=== PATIENT | female | born 1955 | race Caucasian/White ===

== ENCOUNTER → 2020-04-28 | Outpatient (REF) | payer MEDICARE ==
[2020-04-28 13:49] LABS: CPK CREATINE PHOSPHOKINASE 119 U/L (26-192); MAGNESIUM LEVEL 2.3 MG/DL (1.8-2.4); PHOSPHORUS LEVEL 2.6 MG/DL (2.5-4.9); TOTAL 25(OH) VITAMIN D 41.9 NG/ML (30.0-100.0); VITAMIN B12 LEVEL > 2000 PG/ML (247-911)
== END ==
LOC: M SFHCRHEU 10:07
PROVIDERS: ATTEND Internal Medicine
DX: M62.81 Muscle weakness (generalized) (principal); R20.2 Paresthesia of skin; Z79.899 Other long term (current) drug therapy
CPT/HCPCS: 82306; 82550; 82607; 83735; 84100; G0463